=== PATIENT | female | born 1960 ===

== ENCOUNTER → 2016-09-28 | Outpatient (CLI) | payer OTHER | END | disposition short-term general hospital (02) | LOC: CLORTH 08:47 | DX: S46.011A Strain of muscle(s) and tendon(s) of the rotator cuff of right shoulder, initial encounter (principal); M67.921 Unspecified disorder of synovium and tendon, right upper arm; M75.41 Impingement syndrome of right shoulder; M19.011 Primary osteoarthritis, right shoulder ==

== ENCOUNTER → 2016-12-07 | Outpatient (CLI) | payer OTHER | END | disposition short-term general hospital (02) | LOC: CLORTH 04:45 | DX: S43.421D Sprain of right rotator cuff capsule, subsequent encounter (principal) ==